=== PATIENT | male | born 1975 | race Caucasian/White ===

== ENCOUNTER 2019-05-10 20:07 | Emergency (ER) | payer OTHER ==
[~2019-05-10] VITALS: Ht 167.6 cm; Wt 89.8 kg
[2019-05-10 20:09] VITALS: Ht 167.6 cm; Wt 89.8 kg
[2019-05-10 21:17] VITALS: BP 168/109
== END 2019-05-10 20:45 | disposition home or self-care (01) ==
LOC: ED 20:07
DX: B34.9 Viral infection, unspecified (principal)

== ENCOUNTER 2019-05-20 12:43 | Emergency (ER) | payer OTHER ==
[~2019-05-20] VITALS: Ht 167.6 cm; Wt 88.9 kg
[2019-05-20 12:48] VITALS: BP 170/114; Ht 167.6 cm; Wt 88.9 kg
== END 2019-05-20 13:25 | disposition home or self-care (01) ==
LOC: ED 12:43
DX: K04.7 Periapical abscess without sinus (principal); M62.838 Other muscle spasm

== ENCOUNTER 2019-05-29 19:58 | Emergency (ER) | payer OTHER ==
[~2019-05-29] VITALS: Ht 167.6 cm; Wt 88.9 kg
[2019-05-29 20:03] VITALS: Ht 167.6 cm; Wt 88.9 kg
[2019-05-29 21:07] VITALS: BP 170/98
== END 2019-05-29 21:07 | disposition home or self-care (01) ==
LOC: ED 19:58
DX: K04.7 Periapical abscess without sinus (principal)

== ENCOUNTER 2019-06-23 17:31 | Emergency (ER) | payer OTHER ==
[~2019-06-23] VITALS: Ht 167.6 cm; Wt 86.2 kg
[2019-06-23 17:43] VITALS: Ht 167.6 cm; Wt 86.2 kg
[2019-06-23 18:34] LABS: PLATELET COUNT 224 x10^3mcL (130-400)
[2019-06-23 18:39] LABS: BASOPHIL % 2.4 % (0-2)
[2019-06-23 18:49] LABS: CALCIUM 8.8 mg/dL (8.5-10.1); CARBON DIOXIDE 29.5 mmol/L (21-32); CHLORIDE SERUM 104 mmol/L (98-107); GFR1 > 60 mL/min; GLUCOSE SERUM 109 mg/dL (74-106); POTASSIUM SERUM 3.7 mmol/L (3.5-5.1); SODIUM SERUM 140 mmol/L (136-145)
[2019-06-23 18:54] LABS: ALKALINE PHOSPHATASE 64 U/L (46-116); ALT/SGPT 41 U/L (16-63); AST/SGOT 25 U/L (15-37); BILIRUBIN TOTAL 0.4 mg/dL (0.20-1.00); TOTAL PROTEIN, SERUM 7.5 g/dL (6.4-8.2)
[2019-06-23 20:16] VITALS: BP 160/89
== END 2019-06-23 20:35 | disposition home or self-care (01) ==
LOC: ED 17:31
PROVIDERS: Emergency Medicine
DX: M50.20 Other cervical disc displacement, unspecified cervical region (principal); R20.2 Paresthesia of skin; I10 Essential (primary) hypertension
CPT/HCPCS: 36415; J1885